=== PATIENT | female | born 2005 | race Caucasian/White ===

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

== ENCOUNTER 2023-01-12 17:35 | Emergency (ER) | payer OTHER, SELFPAY ==
[2023-01-12 17:41] VITALS: BP 138/90; PULSE 99; O2SAT 98
[2023-01-12 17:53] VITALS: BP 121/83; PULSE 75; RESP 20; TEMP 37; O2SAT 98; BMI 22.1
[2023-01-12 19:46] LABS: MANUAL DIFF FLAG NO
[2023-01-12 19:54] LABS: Basophils Percent Auto 0.2 % (0-2); Eosinophils Percent Auto 0.2 % (0-4); Hematocrit 37.8 % (37.0-47.0); Hemoglobin 13.2 g/dl (12.0-16.0); Imm Gran Abs Auto 0.02 X10*3/uL (0.00-0.03); Imm Gran Pct Auto 0.2 % (0.0-0.4); Lymphocytes Absolute Auto 1.3 X10*3/uL (1.2-4.9); Lymphocytes Percent Auto 15.2 % (20-40); Mean Corpuscular HGB Conc 34.9 g/dl (31.0-35.0); Mean Corpuscular Hemoglobin 31.5 pg (27.0-33.0); Mean Corpuscular Volume 90.2 fL (80.0-98.0); Mean Platelet Volume 10.8 fL (9.4-12.3); Monocytes Absolute Auto 0.7 X10*3/uL (0.1-1.2); Monocytes Percent Auto 8.4 % (2-11); Neutrophils Absolute Auto 6.6 x10*3/uL (2.0-8.3); Neutrophils Percent Auto 75.8 % (45-73); Platelet Count 223 X10*3/uL (160-400); Red Blood Count 4.19 X10*6/uL (4.20-5.50); Red Cell Distribution Width 12.2 % (11.0-16.0); White Blood Count 8.7 X10*3/uL (4.8-10.8)
[2023-01-12 20:09] LABS: Urine Pregnancy NEGATIVE (NEGATIVE)
[2023-01-12 20:10] LABS: UPreg QC Valid YES
[2023-01-12 20:15] LABS: Appearance Urine Clear; Color Urine Dark Yellow; Glucose Urine UA Negative (Negative); Leukocyte Esterase Urine Trace (Negative); Nitrite Urine Negative (Negative); PH 6.5 (5.0-9.0); Specific Gravity - Urine >= 1.030 (1.005-1.025); UMIC TRIGGER UA YES; Urine Blood Negative (Negative); Urine Ketones 80 mg/dL (Negative); Urine Protein 30 (1+) mg/dL (Neg-Trace)
[2023-01-12 20:15] LABS: Alanine Aminotransferase 11 U/L (0-31); Albumin Level 4.4 g/dL (3.5-5.0); Alkaline Phosphatase 60 U/L (39-117); Anion Gap 13 (12-20); Aspartate Amino Transferase 16 U/L (5-31); Bilirubin Total 1.8 mg/dL (0.0-1.0); Blood Urea Nitrogen 15 mg/dL (9-16); Calcium 9.9 mg/dL (8.4-10.2); Carbon Dioxide 24 mmol/L (22-29); Chloride 106 mmol/L (96-108); Creatinine Clr Calc Pharmacy 86.2; Estimated Glomerular Filt Rate > 60; Ethanol < 10 mg/dL; Glucose Random 98 mg/dL (60-115); Potassium 3.8 mmol/L (3.3-5.1); Sodium 139 mmol/L (135-145); Total Protein 7.9 g/dL (6.5-8.0)
[2023-01-12 20:22] LABS: Amphetamine Screen Urine Not Detected (Not Detect); Barbiturates, Urine Not Detected (Not Detect); Benzodiazepines Screen Urine Not Detected (Not Detect); Cannabinoid Screen Urine POSITIVE (Not Detect); Cocaine Screen Urine Not Detected (Not Detect); Fentanyl, urine Not Detected (Not Detect); Opiate Screen Urine Not Detected (Not Detect); Phencyclidine Screen Urine Not Detected (Not Detect)
[2023-01-12 20:31] LABS: Bacteria Urine Trace (None Seen); Hyaline Casts Urine 0-2 /LPF (0-2); RBC Urine 0-2 /HPF (0-2); WBC Urine 0-5 /HPF (0-5)
--- NOTE | 2023-01-12 22:31 | ED_ITS ---
HPI - Psych General Chief Complaint: Psychiatric Symptoms Stated Complaint: crisis Time Seen by Provider: 01/12/23 21:09 History of Present Illness HPI Narrative: patient is a 17-year-old female presents today with having thoughts of wanting to hurt herself. Patient had thoughts of taking pills and also cutting herself. she did not actually take any pills. Denies any fever chills denies any recreational drug use. Patient claims he has lots of stressors in life. Related Data Home Medications Medication Instructions Recorded Confirmed nortriptyline 10 mg capsule 10 mg PO BEDTIME 01/12/23 01/12/23 Allergies Allergy/AdvReac Type Severity Reaction Status Date / Time amoxicillin [AMOXICILLIN] Allergy Unknown HIVES Verified 10/22/22 10:10 Review of Systems Review of Systems: No fever no chills no chest pain no shortness of breath or diaphoresis Yes all other systems are reviewed and are negative [facility] Past Medical History Attestation statement: The following information was validated with the patient. Medical History Colitis GERD (gastroesophageal reflux disease) Surgical History History of ankle surgery Family History Family History Paternal Grandfather Esophagus cancer Maternal Grandfather Esophagus cancer Father Benign neoplasm of head Mother Depression Anxiety Social History Social History Alcohol intake: current Alcohol intake frequency: 0-2 drinks per day Alcohol type: hard liquor Patient Tobacco Use Status: Current everyday Tobacco user Smoked in Last 30 Days: No Use of substances other than those prescribed or required for medical reasons: No Substance Use Type: Marijuana Advance Directives: No Advance Directives Information Provided: No Patient : No Physical Exam Vital Signs: Vital Signs: Last Vital Signs Temp 98.3 F 01/13/23 06:11 Pulse 89 01/13/23 06:11 Resp 18 01/13/23 06:11 BP 132/72 01/13/23 06:11 Pulse Ox 100 01/13/23 06:11 O2 Del Method Room Air 01/13/23 06:11 BMI result Body Mass Index 22.1 Appearance: Alert. Oriented X3. No acute distress. Eyes: Pupils equal, round and reactive to light. ENT: Pharynx normal. Neck: Normal inspection. Neck supple. No lymph nodes noted. No crepitus CVS: Normal heart rate and rhythm. Pulses normal. Normal S1 and S2 Respiratory: No respiratory distress. Breath sounds normal. No Wheezing. No rales Abdomen: Soft and nontender. No rigidity. No distention. good BS x4 Skin: Skin warm and dry. Normal skin color. Normal skin turgor. Extremities: No lower extremity edema. Neurovascular intact to all extremities. No Lacerations. No Rash Neuro: Oriented X 3. No motor deficit. No sensory deficit. Moving all extermities. No slurred speech Medications Administered Generic Name Dose Route Start Last Admin Trade Name Freq PRN Reason Stop Dose Admin Nortriptyline HCl 10 mg 01/12/23 23:15 01/13/23 00:39 Nortriptyline Hcl 10 Mg Capsule PO Not Given BEDTIME CAROLIN Medical Decision Making Medical Decision Making [facility] Narrative: Positive anxiety with suicidal thoughts. Patient currently denies she is suicidal. She told the triage nurse that she was suicidal. Patient had visible cut navas on her left wrist. Will require crisis evaluation. Currently in stable condition. Patient's alcohol was negative. Positive U tox for marijuana. In stable condition medically cleared. test was negative. Lab Data [facility] Lab Attestation statement: I reviewed the patient's lab results. 01/12/23 19:42 01/12/23 19:42 Labs: Lab Results 01/12/23 01/12/23 01/12/23 Range/Units 19:42 19:42 19:57 WBC 8.7 (4.8-10.8) X10*3/uL RBC 4.19 L (4.20-5.50) X10*6/uL Hgb 13.2 (12.0-16.0) g/dl Hct 37.8 (37.0-47.0) % MCV 90.2 (80.0-98.0) fL MCH 31.5 (27.0-33.0) pg MCHC 34.9 (31.0-35.0) g/dl RDW 12.2 (11.0-16.0) % Plt Count 223 (160-400) X10*3/uL MPV 10.8 (9.4-12.3) fL Immature Gran % (Auto) 0.2 (0.0-0.4) % Neut % (Auto) 75.8 H (45-73) % Lymph % (Auto) 15.2 L (20-40) % [place] % (Auto) 8.4 (2-11) % Eos % (Auto) 0.2 (0-4) % Baso % (Auto) 0.2 (0-2) % Lymph # (Auto) 1.3 (1.2-4.9) X10*3/uL [place] # (Auto) 0.7 (0.1-1.2) X10*3/uL Eos # (Auto) 0.0 (0.0-0.4) X10*3/uL Baso # (Auto) 0.0 (0.0-0.2) X10*3/uL Abs Immat Gran (auto) 0.02 (0.00-0.03) X10*3/uL Absolute Neuts (auto) 6.6 (2.0-8.3) x10*3/uL Absolute Nucleated RBC 0.000 (0.0-0.012) X10*3/uL Nucleated RBC % (auto) 0.0 (0.0-0.2) /100WBC Sodium 139 (135-145) mmol/L Potassium 3.8 (3.3-5.1) mmol/L Chloride 106 (96-108) mmol/L Carbon Dioxide 24 (22-29) mmol/L Anion Gap 13 (12-20) BUN 15 (9-16) mg/dL Creatinine 0.83 (0.5-1.4) mg/dL Estim Creat Clear Calc 86.2 Estimated GFR > 60 Random Glucose 98 (60-115) mg/dL Calcium 9.9 D (8.4-10.2) mg/dL Total Bilirubin 1.8 H (0.0-1.0) mg/dL AST 16 (5-31) U/L ALT 11 (0-31) U/L Alkaline Phosphatase 60 (39-117) U/L Total Protein 7.9 (6.5-8.0) g/dL Albumin 4.4 (3.5-5.0) g/dL Urine Color Urine Appearance Urine pH (5.0-9.0) Ur Specific [place] (1.005-1.025) Urine Protein (Neg-Trace) mg/dL Urine Glucose (UA) (Negative) mg/dL Urine Ketones (Negative) mg/dL Urine Blood (Negative) Urine Nitrite (Negative) Ur Leukocyte Esterase (Negative) Urine RBC (0-2) /HPF Urine WBC (0-5) /HPF Ur Squamous Epith Cells (0-2) /HPF Urine Bacteria (None Seen) Hyaline Casts (0-2) /LPF Urine Test (NEGATIVE) Urine Opiates Screen Not Detected (Not Detect) Urine Fentanyl Screen Not Detected (Not Detect) Ur Barbiturates Screen Not Detected (Not Detect) Ur Phencyclidine Scrn Not Detected (Not Detect) Ur Amphetamines Screen Not Detected (Not Detect) U Benzodiazepines Scrn Not Detected (Not Detect) Urine Cocaine Screen Not Detected (Not Detect) U Marijuana (THC) Screen POSITIVE H (Not Detect) Ethyl Alcohol < 10 mg/dL 01/12/23 01/12/23 Range/Units 19:57 19:57 WBC (4.8-10.8) X10*3/uL RBC (4.20-5.50) X10*6/uL Hgb (12.0-16.0) g/dl Hct (37.0-47.0) % MCV (80.0-98.0) fL MCH (27.0-33.0) pg MCHC (31.0-35.0) g/dl RDW (11.0-16.0) % Plt Count (160-400) X10*3/uL MPV (9.4-12.3) fL Immature Gran % (Auto) (0.0-0.4) % Neut % (Auto) (45-73) % Lymph % (Auto) (20-40) % [place] % (Auto) (2-11) % Eos % (Auto) (0-4) % Baso % (Auto) (0-2) % Lymph # (Auto) (1.2-4.9) X10*3/uL [place] # (Auto) (0.1-1.2) X10*3/uL Eos # (Auto) (0.0-0.4) X10*3/uL Baso # (Auto) (0.0-0.2) X10*3/uL Abs Immat Gran (auto) (0.00-0.03) X10*3/uL Absolute Neuts (auto) (2.0-8.3) x10*3/uL Absolute Nucleated RBC (0.0-0.012) X10*3/uL Nucleated RBC % (auto) (0.0-0.2) /100WBC Sodium (135-145) mmol/L Potassium (3.3-5.1) mmol/L Chloride (96-108) mmol/L Carbon Dioxide (22-29) mmol/L Anion Gap (12-20) BUN (9-16) mg/dL Creatinine (0.5-1.4) mg/dL Estim Creat Clear Calc Estimated GFR Random Glucose (60-115) mg/dL Calcium (8.4-10.2) mg/dL Total Bilirubin (0.0-1.0) mg/dL AST (5-31) U/L ALT (0-31) U/L Alkaline Phosphatase (39-117) U/L Total Protein (6.5-8.0) g/dL Albumin (3.5-5.0) g/dL Urine Color Dark Yellow Urine Appearance Clear Urine pH 6.5 (5.0-9.0) Ur Specific [place] >= 1.030 H (1.005-1.025) Urine Protein 30 (1+) H (Neg-Trace) mg/dL Urine Glucose (UA) Negative (Negative) mg/dL Urine Ketones 80 (Negative) mg/dL Urine Blood Negative (Negative) Urine Nitrite Negative (Negative) Ur Leukocyte Esterase Trace H (Negative) Urine RBC 0-2 (0-2) /HPF Urine WBC 0-5 (0-5) /HPF Ur Squamous Epith Cells 11-20 (0-2) /HPF Urine Bacteria Trace (None Seen) Hyaline Casts 0-2 (0-2) /LPF Urine Test NEGATIVE (NEGATIVE) Urine Opiates Screen (Not Detect) Urine Fentanyl Screen (Not Detect) Ur Barbiturates Screen (Not Detect) Ur Phencyclidine Scrn (Not Detect) Ur Amphetamines Screen (Not Detect) U Benzodiazepines Scrn (Not Detect) Urine Cocaine Screen (Not Detect) U Marijuana (THC) Screen (Not Detect) Ethyl Alcohol mg/dL Discharge Plan Discharge Clinical Impression: Suicidal ideation Patient Disposition: Still a Patient Prescriptions: No Action nortriptyline 10 mg capsule 10 mg PO BEDTIME Interventions: [place]-Suicide Risk Severity Scale Last Done: 01/13/23 06:35
[2023-01-13 06:11] VITALS: BP 132/72; PULSE 89; RESP 18; TEMP 36.8; O2SAT 100
--- NOTE | 2023-01-13 06:42 | PC.NURSE ---
Patient slept through the night, no distress observed/reported, no behavior concerns, med rec completed/MAR active/HS Nortriptyline no administered, medication not available, pharmacy made aware, VSS, care consult ordered/pending evaluation, will continue to monitor.
--- NOTE | 2023-01-13 07:33 | PC.NURSE ---
pt sleeping and easily woken, denies si, I feel so much better. , states she is signing a lease today and also has an interview later in the day so she is anxious to be evaluated so that she can leave. pt polite, pleasant, and cooperative. boyfriend called and is coming to see her
--- NOTE | 2023-01-13 09:57 | MHC.CARE ---
Patient evaluated by the CARE Team, she does not require inpatient psychiatric treatment and is clear to discharge.
== END 2023-01-13 10:15 | disposition home or self-care (01) ==
PROVIDERS: Emergency Provider Emergency Medicine Emergency Medical Services; PCP Hospitalist
DX: R45.851 Suicidal ideations (principal); Z79.899 Other long term (current) drug therapy; F17.200 Nicotine dependence, unspecified, uncomplicated; Z71.6 Tobacco abuse counseling
CPT/HCPCS: 36415; 80053; 80307; 81001; 81025; 85025; 99284; S9485

== ENCOUNTER → 2023-04-14 13:00 | Outpatient (BNVA) | payer MEDICAID, SELFPAY | PROVIDERS: PCP Hospitalist; Visit Provider Nurse Practitioner Family | DX: G43.009 Migraine without aura, not intractable, without status migrainosus (principal); F07.81 Postconcussional syndrome | CPT/HCPCS: 99212 ==

== ENCOUNTER 2023-07-10 13:55 | Outpatient (REF) | payer MEDICAID, SELFPAY ==
[2023-07-10 16:58] LABS: CT PCR NOT DETECTED (Not Detect.); NG PCR NOT DETECTED (Not Detect.)
== END 2023-07-10 13:56 | disposition home or self-care (01) ==
LOC: HO.CHCLNP 13:55
PROVIDERS: Visit Provider Family Medicine
DX: Z11.3 Encounter for screening for infections with a predominantly sexual mode of transmission (principal)
CPT/HCPCS: 0353U

== ENCOUNTER 2023-07-17 11:17 | Outpatient (REF) | payer MEDICAID, SELFPAY ==
[2023-07-17 11:31] LABS: MANUAL DIFF FLAG NO
[2023-07-17 12:25] LABS: Basophils Percent Auto 0.4 % (0-2); Eosinophils Absolute Auto 0.2 X10*3/uL (0.0-0.4); Eosinophils Percent Auto 3.6 % (0-4); Hematocrit 38.6 % (37.0-47.0); Hemoglobin 12.9 g/dl (12.0-16.0); Imm Gran Abs Auto 0.01 X10*3/uL (0.00-0.03); Imm Gran Pct Auto 0.2 % (0.0-0.4); Lymphocytes Absolute Auto 1.6 X10*3/uL (1.2-4.9); Lymphocytes Percent Auto 31.6 % (20-40); Mean Corpuscular HGB Conc 33.4 g/dl (31.0-35.0); Mean Corpuscular Hemoglobin 30.6 pg (27.0-33.0); Mean Corpuscular Volume 91.7 fL (80.0-98.0); Mean Platelet Volume 11.4 fL (9.4-12.3); Monocytes Absolute Auto 0.5 X10*3/uL (0.1-1.2); Monocytes Percent Auto 9.1 % (2-11); Neutrophils Absolute Auto 2.8 x10*3/uL (2.0-8.3); Neutrophils Percent Auto 55.1 % (45-73); Platelet Count 220 X10*3/uL (160-400); Red Blood Count 4.21 X10*6/uL (4.20-5.50); Red Cell Distribution Width 12.8 % (11.0-16.0)
[2023-07-17 12:58] LABS: Cholesterol 175 mg/dL (<200); HDL Cholesterol 58 mg/dL (>40); LDL Cholesterol Calculated 102 mg/dL (<100); Triglycerides 75 mg/dL (<150)
[2023-07-18 08:16] LABS: HBsAGNum1 0.32 S/CO (0.00-0.99); HIV AB/AG Nonreactive (Nonreactive); HIV Num 1 0.05 S/CO (0.00-0.99); Hepatitis B Surface Antigen Negative (Negative); ~HepC Num1 0.11 S/CO (0.00-0.79); ~Hepatitis C Antibody Nonreactive (Nonreactive)
[2023-07-18 08:24] LABS: Syphilis Screen Nonreactive (Nonreactive)
[2023-07-20 13:08] LABS: Von Willebrand Factor Antigen 99 % (50-217)
== END 2023-07-17 11:18 | disposition home or self-care (01) ==
LOC: HO.LAB 11:17
PROVIDERS: PCP Family Medicine; Visit Provider Family Medicine
DX: D68.00 Von Willebrand disease, unspecified (principal); Z11.3 Encounter for screening for infections with a predominantly sexual mode of transmission
CPT/HCPCS: 36415; 80061; 85025; 85246; 86780; 86803; 87340; 87389

== ENCOUNTER 2023-10-03 11:28 | Outpatient (REF) | payer MEDICAID, SELFPAY ==
[2023-10-03 12:35] LABS: HBS Num1 0.16 mIU/mL (0-7.99); HBc Num1 0.08 S/CO (0.00-0.79); HBsAGNum1 0.31 S/CO (0.00-0.99); Hepatitis A Antibody IgM 0.23 Index (0-0.79); Hepatitis B Core Antibody Nonreactive (Nonreactive); Hepatitis B Surface Antigen Negative (Negative); ~HepC Num1 0.13 S/CO (0.00-0.79); ~Hepatitis A Antibody IgM Nonreactive (Nonreactive); ~Hepatitis B Surface Antibody NONREACTIVE (Nonreactive); ~Hepatitis C Antibody Nonreactive (Nonreactive)
[2023-10-05 20:39] LABS: TS Negative Control Passed; TS Panel A 3; TS Panel B 0; TS Positive Control Passed; TSpotTB Negative (Negative)
== END 2023-10-03 11:29 | disposition home or self-care (01) ==
LOC: HO.LAB 11:28
PROVIDERS: PCP Family Medicine; Visit Provider Family Medicine
DX: Z00.00 Encounter for general adult medical examination without abnormal findings (principal); Z11.1 Encounter for screening for respiratory tuberculosis
CPT/HCPCS: 36415; 86481; 86704; 86706; 86709; 86735; 86762; 86765; 86787; 86803; 87340

== ENCOUNTER 2023-10-15 07:04 | Emergency (ER) | payer MEDICAID, SELFPAY ==
--- NOTE | ~2023-10-15 | XR_ITS ---
EXAMINATION: XR CHEST CLINICAL INFORMATION: Cough COMPARISON: Chest radiograph from 11/20/2008 TECHNIQUE: Frontal view of the chest was obtained. FINDINGS: No focal consolidation. No pneumothorax. Trachea is midline. Cardiac mediastinal silhouette is not enlarged. No large pleural osseous structures are intact. Soft tissues are unremarkable. XR/XR chest 1V IMPRESSION: No acute cardiopulmonary process.
[2023-10-15 07:41] VITALS: BP 119/65; PULSE 102; RESP 16; TEMP 36.9; O2SAT 97; BMI 23.3
[2023-10-15 08:08] LABS: IDNOW Serial# 6674DD1D; Strep A Nucleic Acid Negative (Negative)
[2023-10-15 08:37] LABS: Influenza A PCR NEGATIVE (Negative); Influenza B PCR NEGATIVE (Negative); Resp Syncy Virus RNA Qual PCR NEGATIVE (Negative); SARS COV2 PCR INHOUSE NEGATIVE (Negative)
--- NOTE | 2023-10-15 09:23 | ED_ITS ---
HPI - General Adult General Chief complaint: Upper Respiratory Symptoms Stated complaint: ? Sinus Infection Time Seen by Provider: 10/15/23 09:16 Source: patient Mode of arrival: ambulatory Limitations: no limitations History of Present Illness HPI narrative: 17-year-old female hx GERD, colitis, depression, anxiety, migranes presents with congestion, dry cough, sore throat, bilateral ear popping, sinus congestion all of which started yesterday and have been progressively worsening. Patient reports that she just does not feel well. This started suddenly. No known sick contacts. Denies chest pain, shortness of breath, nausea, vomiting, diarrhea, abdominal pain, headache, vision changes, dizziness, weakness. Eating and drinking well. Related Data Previous Rx's Medication Instructions Recorded nortriptyline 10 mg capsule 20 mg (2 x 10 mg) PO BEDTIME 30 04/16/23 days #60 caps sumatriptan succinate 100 mg tablet 50 - 100 mg (0.5 - 1 x 100 mg) PO 04/16/23 .COMPLEX PRN migraine headache 30 days #12 tabs albuterol sulfate 90 mcg/actuation 2 inh inhalation Q4-6H PRN 10/15/23 breath activated powder inhaler shortness of breath or wheezing #1 ea benzonatate 100 mg capsule 100 mg PO BID PRN cough #20 caps 10/15/23 prednisone 20 mg tablet 20 mg PO DAILY 5 days #5 tabs 10/15/23 Allergies Allergy/AdvReac Type Severity Reaction Status Date / Time amoxicillin [AMOXICILLIN] Allergy Unknown Anaphylaxis Verified 10/15/23 07:45 Review of Systems Review of Systems: Yes all other systems are reviewed and are negative PMFSH Past Medical History Attestation statement: The following information was validated with the patient. Source: old records reviewed and nursing notes reviewed Medical History Colitis GERD (gastroesophageal reflux disease) Surgical History History of ankle surgery Family History Family History Paternal Grandfather Esophagus cancer Maternal Grandfather Esophagus cancer Father Benign neoplasm of head Mother Depression Anxiety Social History Social History (Reviewed 10/15/23 @ 09:25 by SARWAT Herrera Alcohol intake: current Alcohol intake frequency: 0-2 drinks per day Alcohol type: hard liquor Patient Tobacco Use Status: Current everyday Tobacco user Substance Use Type: Marijuana Advance Directives: No Advance Directives Information Provided: No Physical Exam ED Vital Signs: Vital Signs - 24 hr 10/15/23 07:41 10/15/23 09:56 10/15/23 09:57 Temperature 98.5 F 98.5 F 98.5 F Pulse Rate 102 H 77 77 Respiratory Rate 16 18 18 Blood Pressure 119/65 118/68 118/68 Pulse Oximetry 97 98 98 Oxygen Delivery Method Room Air Room Air Room Air BMI result Body Mass Index 23.3 vss Appearance: Alert.? Oriented X3.? No acute distress.? Head: Normocephalic, atraumatic, no step-offs or deformities Eyes: Pupils equal, round and reactive to light.? ENT: Pharynx normal.? Neck: Normal inspection.? Neck supple.? CVS: Normal heart rate and rhythm.? Pulses normal.? Respiratory: No respiratory distress.? Breath sounds normal.? Abdomen: Soft and nontender.? Skin: Skin warm and dry.? Normal skin color.? Normal skin turgor.? Extremities: No lower extremity edema.? No calf ttp. 5/5 strength to bilateral upper and lower extremities Neuro: Oriented X 3.? No motor deficit.? No sensory deficit. CN 2-12 intact Course Reevaluation(s) Reevaluation #1: Flu, COVID, RSV negative. Strep negative. Chest x-ray pending. Time: 09:27 Reevaluation #2: Chest x-ray unremarkable. Educated patient on diagnosis and treatment plan, answered all question, patient verbalizes understanding. At this time patient will be discharged home, advised to return with new or worsening symptoms. Educated on worrisome signs and symptoms and when to return. At this time I feel comfortable discharge home. Time: 10:39 Medical Decision Making Medical Decision Making [facility] Narrative: 924 17-year-old female presents with cough, fatigue, malaise, sinus pressure, congestion, sore throat, ear popping bilaterally since yesterday. Physical examination benign Concerns for flu versus COVID versus RSV versus other viral illness. Unlikely otitis media, otitis externa, mastoiditis, strep throat, peritonsillar abscess, retropharyngeal abscess, epiglottitis, threat to airway. Unlikely ACS, PE, pneumothorax, pneumonia. Plan viral testing, x-ray, strep test. Differential Diagnosis Differential Diagnoses: The differential diagnosis associated with the presentation includes Concerns for flu versus COVID versus RSV versus other viral illness. Unlikely otitis media, otitis externa, mastoiditis, strep throat, peritonsillar abscess, retropharyngeal abscess, epiglottitis, threat to airway. Unlikely ACS, PE, pneumothorax, pneumonia. Admission/Observation Consideration of admission/observation: Escalation of care including admission/observation considered [facility] Lab Data [facility] Lab Attestation statement: I reviewed the patient's lab results. Labs: Lab Results 10/15/23 Range/Units 07:54 Influenza Type A (PCR) NEGATIVE (Negative) Influenza Type B (PCR) NEGATIVE (Negative) RSV RNA Qual (PCR) NEGATIVE (Negative) SARS-CoV-2 RNA (RT-PCR) NEGATIVE (Negative) S. pyogenes GrpA NIKA Negative (Negative) External Record Review External record reviewed: Inpatient record, Office record, Outpatient record, Prior outpatient labs, Prior outpatient radiology, Primary care record and Outside ED record Chronic Conditions Patient?s care impacted by: Other (GERD, colitis, depression, anxiety, migranes ) Critical Care Time Critical Care Time Critical Care Time: No Discharge Plan Discharge Clinical Impression: Viral infection Patient Disposition: Home, Self-Care Instructions: Viral Syndrome (ED) Additional Instructions: Take your medications as prescribed. If you were prescribed antibiotics today, it is important that you take your medication to their entirety, do not skip any doses, do not finish them early. Follow-up with your primary care provider this week. Return to the emergency department with new or worsening symptoms. Such as fevers, chills, chest pain, shortness of breath, nausea, vomiting, dizziness, headache, vision changes, lethargy In case of emergency call 911 Prescriptions: New benzonatate 100 mg capsule 100 mg PO BID PRN (Reason: cough) Qty: 20 0RF prednisone 20 mg tablet 20 mg PO DAILY 5 Days Qty: 5 0RF albuterol sulfate 90 mcg/actuation aerosol powdr breath activated 2 inh inhalation Q4-6H PRN (Reason: shortness of breath or wheezing) Qty: 1 0RF No Action nortriptyline 10 mg capsule 20 mg PO BEDTIME 30 Days Qty: 60 6RF sumatriptan succinate 100 mg tablet 50 - 100 mg PO .COMPLEX PRN (Reason: migraine headache) 30 Days Qty: 12 6RF Rx Instructions: 50 - 100 mg orally at onset of headache, may repeat in 2 hrs PRN; max 2 tabs per day or 4 tabs/week (may take with Ibuprofen) Referrals: Brissa Felipe MD [Primary Care Provider] - 2 days Stand Alone Forms: Work/School Release Interventions: ED Discharge Assessment Last Done: 10/15/23 09:57 Discharge Date/Time: 10/15/23 09:59
[2023-10-15 09:56] VITALS: BP 118/68; PULSE 77; RESP 18; TEMP 36.9; O2SAT 98
[2023-10-15 09:57] VITALS: BP 118/68; PULSE 77; RESP 18; TEMP 36.9; O2SAT 98
== END 2023-10-15 09:59 | disposition home or self-care (01) ==
PROVIDERS: Emergency Provider Emergency Medicine Emergency Medical Services; PCP Family Medicine
DX: B34.9 Viral infection, unspecified (principal); R05.9 Cough, unspecified; J02.9 Acute pharyngitis, unspecified; R09.81 Nasal congestion; R53.83 Other fatigue; Z11.52 Encounter for screening for COVID-19; Z20.828 Contact with and (suspected) exposure to other viral communicable diseases
CPT/HCPCS: 0241U; 71045; 87651; 99283; 99284

== ENCOUNTER 2024-12-07 11:39 | Outpatient (REF) | payer MEDICAID, SELFPAY ==
--- OUTSIDE RECORDS SUMMARY | 2024-12-07 12:55 | XMS_ITS | Encounter Summary ---
Author Organization [facility] Address [address] [place], [place] [id number] Phone Care Team Providers Care Human Resources File Clerk Name Role Phone Mathieu Barclay MD Primary Care Provider Unavailabl e Encounter Details Date Type Department Care Team (Late st Contact Info) Description 08/15/2011 Documentation EM Family Medicine [address] [place], [place] [id number] Family Medicine, Physician [address] [place] [address] Social History Tobacco Use Types Packs/Day Years Used Date Smoking Tobacco: Never Assessed Comments Unknown Sex and Gender Information Value Date Recorded Sex Assigned at Not on file Legal Sex Female 4:43 PM EDT Gender Identity Not on file Sexual Orientation Not on file documented as of this encounter Plan of Treatment Not on file documented as of this encounter Visit Diagnoses Not on filedocumented in this encounter Care Teams Human Resources File Clerk Relationship Specialty Start Date End Date Mathieu Barclay MD PCP - General 02/28/17 09/23/23 documented as of this encounter
--- OUTSIDE RECORDS SUMMARY | 2024-12-07 12:55 | XMS_ITS | Clinical Summary ---
Author Organization [facility] Address [address] [place] [address] Phone Care Team Providers Care Mechanical Engineering Lecturer Name Role Phone Unavailable Primary Care Provider Unavailabl e Immunizations Immunization Administration Dates Next Due DTaP 5 12/15/2007, 5,05/23/2004,04/12/2004 ,02/02/2004 H1N1 07/03/2009 Hep B, ped/adol 08/30/2004,05/23/2004,2003 Hib (HbOC) 02/14/2005,04/12/2004,02/02/2004 Hib (PRP-T) 05/23/2004 IPV 12/15/2007,08/30/2004,04/12/2004 ,02/02/2004 Influenza Split 08/05/2012 Influenza, injectable, trivalent 07/03/2009,04/20,08/30/2004 Influenza, intranasal, trivalent 08/14/2011,04/21 MMR 12/15/2007,12/18/2004 Pneumococcal Conjugate 02/14/2005,05/23/2004,,02/02/2004 Unknown Vaccine 05/03/2005 Varicella 01/04/2009,12/18/2004 Family History Relation Name Status Comments Cousin Cousin: ADD/ADH D Father Father: Migrain es, Hyperlipidemia, Seizure disorder, Brain tumor, Asthma Maternal Grandmother Materna l grandmother: Hyperlipidemia, Myocardial infarction, Hypertension, Diabetes mellitus Mother Alive Mother: Migrain es, Alive and well Social History Tobacco Use Types Packs/Day Years Used Date Smoking Tobacco: Never Assessed Comments Unknown Sex and Gender Information Value Date Recorded Sex Assigned at Not on file Legal Sex Female 4:43 PM EDT Gender Identity Not on file Sexual Orientation Not on file Last Filed Vital Signs Vital Sign Reading Time Taken Comments Blood Pressure 92/56 08/19/2012 12:00 AM EST Pulse - - Temperature 35.7 ??C (96.2 ??F) 08/05/2012 12:[address] Respiratory Rate - - Oxygen Saturation - - Inhaled Oxygen Concentration - - Weight 32 kg (70 lb 8 oz) 08/19/2012 12:00 AM ES T Height 135.4 cm (4' 5.3 ) 08/19/2012 12:00 AM ES T Body Mass Index 17.45 08/19/2012 12:00 AM EST Plan of Treatment Health Maintenance Due Date Last Done Comments DTaP,Tdap,and Td Vaccines (6 - Tdap) 11/15/2014 12/15/2007, 05/03/2005, 05/23/2004, Additional history exists HPV Vaccines (1 - 3-dose series) 11/15/2018 Men B Vaccine (1 of 2 - Standard) 2019 Influenza Vaccines (#1) 2024 08/05/19 13, 08/14/2011, 05/14/2010, Additional history exists COVID-19 Vaccine (2023- season) 2024 Hepatitis B Vaccines Completed 08/30/2004, 05/23/2004, 2003 HIB Vaccines Completed 02/14/2005, 09/2003, 04/12/2004, Additional history exists Pneumococcal Vaccine Completed 02/14/2005, 05/23/2004, 04/12/2004, Additional history exists IPV Vaccines Completed 12/15/2007, 08/21, 04/12/2004, Additional history exists MMR Vaccines Completed 12/15/2007, 12/18/2004 Varicella Vaccines Completed 01/04/2009, 12/18/2004 Hepatitis A Vaccines Aged Out No long er eligible based on patient's age to complete this topic Meningococcal Vaccine Aged Out No colleen bryan eligible based on patient's age to complete this topic
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
--- OUTSIDE RECORDS SUMMARY | 2024-12-07 12:55 | XMS_ITS | Encounter Summary ---
Author Organization [facility] Address [address] [place], [place] [phone] Phone Care Team Providers Care Knitting Demonstrator Name Role Phone Mathieu Barclay MD Primary Care Provider Unavailabl e Encounter Details Date Type Department Care Team (Late st Contact Info) Description 01/20/2012 Documentation EM Family Medicine [address] [place], [place] [phone] Family Medicine, Physician [address] [place] [address] Social History Tobacco Use Types Packs/Day Years [...] on filedocumented in this encounter Care Teams Knitting Demonstrator Relationship Specialty Start Date End Date Mathieu Barclay MD PCP - General 02/28/17 09/23/23 documented as of this encounter
--- OUTSIDE RECORDS SUMMARY | 2024-12-07 12:55 | XMS_ITS | Encounter Summary ---
Author Organization [facility] Address [address] [place], [place] [phone] Phone Care Team Providers Care Plain Goods Hemmer Name Role Phone Mathieu Barclay MD Primary Care Provider Unavailabl e Encounter Details Date Type Department Care Team (Late st Contact Info) Description 01/20/2012 Documentation EM Family Medicine [address] [place], [place] [phone] Family Medicine, Physician [address] [place] [address] Social History Tobacco Use Types Packs/Day Years [...] on filedocumented in this encounter Care Teams Plain Goods Hemmer Relationship Specialty Start Date End Date Mathieu Barclay MD PCP - General 02/28/17 09/23/23 documented as of this encounter
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
--- OUTSIDE RECORDS SUMMARY | 2024-12-07 12:55 | XMS_ITS | Encounter Summary ---
Author Organization [employer] Address [address] [place] [address] [address] [place] [address] Care Team Providers Care Flag Car Driver Name Role Phone Brissa Felipe MD Primary Care Provider [phone] Reason for Visit * Reason Onset Date Comments New Patient 05/14/2023 Encounter Details Date Type Department Care Team (Late st Contact Info) Description 05/14/2023 Telephone [facility] [address] [place] [address] Brissa Felipe MD [address] [place] [address] New Patient Social History Tobacco Use Types Packs/Day Years Used Date Smoking Tobacco: Never Assessed Comments Unknown Sex and Gender Information Value Date Recorded Sex Assigned at Female 05/20/2022 10:40 AM EDT Legal Sex Female 10:40 AM EDT Gender Identity Female 05/20/2022 10:40 AM EDT Sexual Orientation Straight 05/20/2022 10 :40 AM EDT documented as of this encounter Miscellaneous Notes * Telephone Encounter - Irving Toledo - 05/14/2023 11:52 AM EDT Tc from Jessica pt Grandmother stating that pt has been waiting since September 2022 for an PHLEBOTOMY TECHNICIAN appt. Planning Engineer apologized for wait time and explained as well. Grandmother confirmed pt's demographics and insurance. Grandmother states following medical conditions: Depression, Anxiety, and stomach conditions. Grandmother reports taking medications: No Pt given PHLEBOTOMY TECHNICIAN appt with Dr. Brissa Feliep on 07/10/2023 @ 10:45 am. Pt will be sent appt reminder card and medical release form and agrees to complete and to return to medical records prior to PHLEBOTOMY TECHNICIAN appt. documented in this encounter Plan of Treatment Upcoming Encounters Date Type Department Care Team ([facility] st Contact Info) Description 12/28/2024 11:00 AM EDT Procedure Visit [facility] [address] [place] [address] Brissa Felipe MD [address] [place] [address] documented as of this encounter Visit Diagnoses Not on filedocumented in this encounter Care Teams Flag Car Driver Relationship Specialty Start Date End Date Brissa Felipe MD [address] [place] [id number] PCP - General Family Medicine 07/10/23 Annemarie WOODRUFF Therapist 07/10/23 documented as of this encounter
--- OUTSIDE RECORDS SUMMARY | 2024-12-07 12:55 | XMS_ITS | Encounter Summary ---
Author Organization [facility] Address [address] [place], [place] [id number] Phone Care Team Providers Care Mud Temperer Name Role Phone Mathieu Barclay MD Primary Care Provider Unavailabl e Encounter Details Date Type Department Care Team (Late st Contact Info) Description 08/26/2012 Documentation EM Family Medicine [address] [place], [place] [id number] Family Medicine, Physician [address] [place] [address] Social History Tobacco Use Types Packs/Day Years [...] on filedocumented in this encounter Care Teams Mud Temperer Relationship Specialty Start Date End Date Mathieu Barclay MD PCP - General 02/28/17 09/23/23 documented as of this encounter
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
--- OUTSIDE RECORDS SUMMARY | 2024-12-07 12:55 | XMS_ITS | Encounter Summary ---
Author Organization [facility] Address [address] [place], [place] [phone] Phone Care Team Providers Care Sewer Builder Name Role Phone Mathieu Barclay MD Primary Care Provider Unavailabl e Encounter Details Date Type Department Care Team (Late st Contact Info) Description 08/20/2012 Documentation EM Family Medicine [address] [place], [place] [phone] Family Medicine, Physician [address] [place] [address] Social History Tobacco Use Types Packs/Day Years [...] on filedocumented in this encounter Care Teams Sewer Builder Relationship Specialty Start Date End Date Mathieu Barclay MD PCP - General 02/28/17 09/23/23 documented as of this encounter
--- OUTSIDE RECORDS SUMMARY | 2024-12-07 12:55 | XMS_ITS | Encounter Summary ---
Author Organization [facility] Address [address] [place] [address] Phone Care Team Providers Care Optical Designer Name Role Phone Mathieu Barclay MD Primary Care Provider Unavailabl e Encounter Details Date Type Department Care Team (Late st Contact Info) Description 03/06/2017 Conversion Encounter [facility] - [address] [address] Social History Tobacco Use Types Packs/Day Years [...] on filedocumented in this encounter Care Teams Optical Designer Relationship Specialty Start Date End Date Mathieu Barclay MD PCP - General 02/28/17 09/23/23 documented as of this encounter
--- OUTSIDE RECORDS SUMMARY | 2024-12-07 12:55 | XMS_ITS | Encounter Summary ---
Author Organization [employer] Address [address] [facility] [address] [place] [address] Care Team Providers Care Deep Fat Fry Cook Name Role Phone Brissa Felipe MD Primary Care Provider [phone] Encounter Details Date Type Department Care Team (Latest Contact Info) Description 12/06/2024 Travel Social History Tobacco Use Types Packs/Day Years [...] AM EDT documented as of this encounter Functional Status * Over the [...] Rodo Granados documented as of this encounter Plan of Treatment Upcoming Encounters Date Type Department Care Team (Late st Contact Info) Description 12/28/2024 11:00 AM EDT Procedure Visit [facility] [address] [place] [address] Brissa Felipe MD [address] [place] [address] documented as of this encounter Visit Diagnoses Not on filedocumented in this encounter Additional Health Concerns Assessment Noted Time PHQ-9 Depression Total Score: 0 12/07/19 25 1:11 PM EDT documented as of this encounter Care Teams Deep Fat Fry Cook Relationship Specialty Start Date End Date Brissa Felipe MD [address] [place] [address] PCP - General Family Medicine 07/10/23 Annemarie WOODRUFF Therapist 07/10/23 documented as of this encounter
--- OUTSIDE RECORDS SUMMARY | 2024-12-07 12:55 | XMS_ITS | Encounter Summary ---
Author Organization [facility] Address [address] [place], [place] [phone] Phone Care Team Providers Care Lead Pl Sql Developer Name Role Phone Mathieu Barclay MD Primary Care Provider Unavailabl e Encounter Details Date Type Department Care Team (Late st Contact Info) Description 08/20/2012 Documentation EM Family Medicine [address] [place], [place] [phone] Family Medicine, Physician [address] [place] [address] Social History Tobacco Use Types Packs/Day Years [...] on filedocumented in this encounter Care Teams Lead Pl Sql Developer Relationship Specialty Start Date End Date Mathieu Barclay MD PCP - General 02/28/17 09/23/23 documented as of this encounter
--- OUTSIDE RECORDS SUMMARY | 2024-12-07 12:55 | XMS_ITS | Encounter Summary ---
Author Organization [facility] Address [address] [place], [place] [phone] Phone Care Team Providers Care Chip Loft Worker Name Role Phone Mathieu Barclay MD Primary Care Provider Unavailabl e Encounter Details Date Type Department Care Team (Late st Contact Info) Description 08/15/2011 Documentation EM Family Medicine [address] [place], [place] [phone] Family Medicine, Physician [address] [place] [address] Social History Tobacco Use Types Packs/Day Years [...] on filedocumented in this encounter Care Teams Chip Loft Worker Relationship Specialty Start Date End Date Mathieu Barclay MD PCP - General 02/28/17 09/23/23 documented as of this encounter
--- OUTSIDE RECORDS SUMMARY | 2024-12-07 12:55 | XMS_ITS | Encounter Summary ---
Author Organization [facility] Address [address] [place], [place] [phone] Phone Care Team Providers Care Time Study Technician Name Role Phone Mathieu Barclay MD Primary Care Provider Unavailabl e Encounter Details Date Type Department Care Team (Late st Contact Info) Description 08/06/2012 Documentation EM Family Medicine [address] [place], [place] [phone] Family Medicine, Physician [address] [place] [address] Social History Tobacco Use Types Packs/Day Years [...] on filedocumented in this encounter Care Teams Time Study Technician Relationship Specialty Start Date End Date Mathieu Barclay MD PCP - General 02/28/17 09/23/23 documented as of this encounter
[2024-12-07 16:28] LABS: CT PCR NOT DETECTED (Not Detect.); NG PCR NOT DETECTED (Not Detect.)
== END 2024-12-07 11:40 | disposition home or self-care (01) ==
LOC: HO.CHCLNP 11:39
PROVIDERS: Visit Provider Family Medicine
DX: N93.9 Abnormal uterine and vaginal bleeding, unspecified (principal)
CPT/HCPCS: 87491; 87591